=== PATIENT | female | born 1980 | race African-American/Black ===

== ENCOUNTER 2018-06-20 18:19 | Emergency (ER) | payer MEDICARE, MEDICAID ==
[~2018-06-20] VITALS: Ht 149.9 cm; Wt 52.2 kg
[~2018-06-20 18:19] MED LIST: GENTAK5 ML RIGHT EYE; NORCO1 EA ORAL
[2018-06-20 19:45] VITALS: BP 112/73
[2018-06-20] MEDS ORDERED: ROBAXIN-750750 MG PO (20:12)
[2018-06-20] MEDS ORDERED: IBUPROFEN600 MG ORAL (20:12)
[2018-06-20 20:30] VITALS: BP 112/73
--- NOTE | 2018-06-20 20:41 | Emergency Room Report ---
History of Present Illness General Chief Complaint: Headache Source: Patient Present Illness HPI 38-year-old female, no significant past medical history, presenting with right- sided posterior neck pain and spasming for the last 4 days. Patient does not take like taking medication, she was using holistic measures. Not going away. Since that she has been stressed lately. No trauma, no accident. No blurry vision no actual headache. No fever chills. Pain is worse with movement. No vomiting Allergies: Coded Allergies: No Known Allergies (Unverified , 12/15/13) Patient History Past Medical History: see triage record Past Surgical History: none Pertinent Family History: none Last Menstrual Period: 06/19/2018 Reviewed Nursing Documentation: PMH: Agreed; PSxH: Agreed Nursing Documentation-PMH Past Medical History: No Stated History Review of Systems All Other Systems: negative except mentioned in HPI Physical Exam Vital Signs Date Time Temp Pulse Resp B/P (MAP) Pulse Ox O2 Delivery O2 Flow Rate FiO2 06/20/18 18:58 99.1 77 14 112/73 100 Room Air Sp02 EP Interpretation: reviewed, normal General Appearance: alert, GCS 15, mild distress Head: normocephalic, atraumatic Eyes: bilateral eye normal inspection, bilateral eye PERRL, bilateral eye EOMI ENT: normal ENT inspection, normal pharynx, normal voice, moist mucus membranes Neck: other - Tenderness along the right SCM/trapezius, no midline tenderness, otherwise full mobility of neck Respiratory: normal inspection, lungs clear, normal breath sounds, no respiratory distress, no retraction, no wheezing, speaking full sentences, chest symmetrical Cardiovascular #1: normal inspection, regular rate, rhythm, normal capillary refill Cardiovascular #2: 2+ radial (R), 2+ radial (L) Gastrointestinal: normal inspection, non tender, soft, non-distended, no guarding Musculoskeletal: normal inspection, back normal, normal range of motion, non- tender Neurologic: normal inspection, alert, oriented x3, responsive, head batcher III-XII nml as tested, motor strength/tone normal, sensory intact, normal gait, speech normal Psychiatric: normal inspection, judgement/insight normal, memory normal Skin: normal inspection, normal color, no rash, warm/dry, well hydrated, normal turgor Medical Decision Making Diagnostic Impression: Primary Impression: Neck muscle spasm ER Course 38-year-old female with 4 days of right-sided neck pain DDX: Muscular spasm, not concerned with meningitis, no meningismus, no fever no chills. Denies any headache at this time Plan: Reassurance ER course: Patient has remained stable during ED stay. Disposition: Patient is to be discharged to home. Prescriptions given are Motrin and Robaxin Patient is instructed to follow up with their primary care doctor within 5 days. She is instructed not to drive and Robaxin. Please note that this Emergency Department Report was dictated using [employer] technology software, occasionally this can lead to erroneous entry secondary to interpretation by the dictation equipment Last Vital Signs Date Time Temp Pulse Resp B/P (MAP) Pulse Ox O2 Delivery O2 Flow Rate FiO2 06/20/18 18:58 99.1 77 14 112/73 100 Room Air Disposition: HOME, SELF-CARE Condition: Stable Scripts Ibuprofen* (MOTRIN*) 600 Mg Tablet 600 MG ORAL Q8H PRN for For Pain, #30 TAB 0 Refills Prov: Rosibel Montaño M.D. 06/20/18 Methocarbamol* (ROBAXIN-750*) 750 Mg Tablet 750 MG PO QID, #28 TAB 0 Refills Prov: Rosibel Montaño M.D. 06/20/18 Patient Instructions: Cervical Strain and Sprain With [facility] Rosibel Montaño M.D. Jun 20, 2018 20:41
== END 2018-06-20 20:30 | disposition home or self-care (01) ==
LOC: EMR 19:59
DX: M62.838 Other muscle spasm (principal); M54.2 Cervicalgia
CPT/HCPCS: 99283

== ENCOUNTER 2019-05-19 11:44 | Emergency (ER) | payer MEDICAID, MEDICARE ==
[~2019-05-19] VITALS: Ht 160 cm; Wt 59.0 kg
[~2019-05-19 11:44] MED LIST changes: +IBUPROFEN600 MG ORAL; +ROBAXIN-750750 MG PO
[2019-05-19 12:00] VITALS: BP 109/70
[2019-05-19] MEDS ORDERED: NKM (12:12)
--- NOTE | 2019-05-19 13:07 | Emergency Room Report ---
History of Present Illness General Chief Complaint: Eye Problems Source: Patient Present Illness HPI 38 YO Female presents to the ED c/o swelling, itching and erythema of the left upper eye lid x 3 days. Pt. reports initial symptoms due to an insect bite which has progressed. Pt. denies pain, warmth, eye d/c, or increased lacrimation. Pt. denies visual changes or loss of vision. pt. describes a feeling of heaviness. She states itching is the primary symptom. She attempted to use Homeopathic herbs, cold ice compresses and rest/lying down which did not provide relief of her symptom. Pt. denies crusting of the eyelashes, or scratching/fb sensation inside of the eye. Pt. denies contact lens use. Allergies: Coded Allergies: No Known Allergies (Unverified , 12/15/13) Patient History Past Medical History: see triage record Past Surgical History: none Pertinent Family History: none Last Menstrual Period: 04/25 Now: No Reviewed Nursing Documentation: PMH: Agreed; PSxH: Agreed Nursing Documentation-PMH Past Medical History: No Stated History Review of Systems All Other Systems: negative except mentioned in HPI Physical Exam Vital Signs Date Time Temp Pulse Resp B/P (MAP) Pulse Ox O2 Delivery O2 Flow Rate FiO2 05/19/19 12:00 98.6 73 16 109/70 (83) 96 Room Air Sp02 EP Interpretation: reviewed, normal General Appearance: no apparent distress, alert, GCS 15, non-toxic Head: normocephalic, atraumatic Eyes: left eye other - Swelling of the left upper eyelid with some migration in to the left lower lid area, no conjunctival injection or erythema, no crusting, no d/c, EOMI without pain, some redness, no warmth. ; bilateral eye normal inspection, bilateral eye PERRL, bilateral eye EOMI, bilateral eye visual acuity ENT: hearing grossly normal, normal voice Neck: full range of motion Respiratory: lungs clear, normal breath sounds, speaking full sentences Cardiovascular #1: regular rate, rhythm Musculoskeletal: gait/station normal, normal range of motion, non-tender Neurologic: alert, oriented x3, responsive, motor strength/tone normal, sensory intact, speech normal, grossly normal Psychiatric: judgement/insight normal Skin: other - ST swelling/edema to the left upper eyelid, and ST just under the left eyebrow Lymphatic: no adenopathy Medical Decision Making PA Attestation Dr. Jones is my supervising Physician whom patient management has been discussed with. Diagnostic Impression: Primary Impression: Allergic blepharitis Qualified Codes: H01.116 - Allergic dermatitis of left eye, unspecified eyelid Additional Impression: Insect bite Qualified Codes: S00.262A - Insect bite (nonvenomous) of left eyelid and periocular area, initial encounter; W57.XXXA - Bitten or stung by nonvenomous insect and other nonvenomous arthropods, initial encounter ER Course 38 YO Female presents to the ED c/o swelling, itching and erythema of the left upper eye lid x 3 days. Pt. reports initial symptoms due to an insect bite which has progressed. Pt. denies pain, warmth, eye d/c, or increased lacrimation. Pt. denies visual changes or loss of vision. pt. describes a feeling of heaviness. She states itching is the primary symptom. She attempted to use Homeopathic herbs, cold ice compresses and rest/lying down which did not provide relief of her symptom. Pt. denies crusting of the eyelashes, or scratching/fb sensation inside of the eye. Pt. denies contact lens use. Ddx considered but are not limited to: allergic reaction, localized inflammatory response, chemosis, corneal abrasion, acute glaucoma, globe rupture , FB, Corneal Ulcer, conjunctivitis. Iridis, Blepharitis, preseptal or periorbital cellulitis. Vital signs: are WNL, pt. is afebrile H&PE are most consistent with: localized inflammatory/allergic reaction to insect bite of the left upper eyelid. no specific signs of infection at this time. No pain with eye movements, normal VA. ORDERS: none required at this time, the dx is clinical. ED INTERVENTIONS: none at this time, DISCHARGE: At this time pt. is stable for d/c to home. Will provide printed patient care instructions, and any necessary prescriptions. Care plan and follow up instructions have been discussed with the patient prior to discharge. . Last Vital Signs Date Time Temp Pulse Resp B/P (MAP) Pulse Ox O2 Delivery O2 Flow Rate FiO2 05/19/19 12:00 98.6 16 109/70 96 Room Air 05/19/19 12:00 73 Disposition: HOME, SELF-CARE Condition: Stable Scripts Cephalexin* (KEFLEX*) 500 Mg Capsule 500 MG ORAL EVERY 12 HOURS for 7 Days, #14 CAP 0 Refills Prov: Melani Espinosa 05/19/19 Diphenhydramine Hcl (BENADRYL ALLERGY) 25 Mg Tablet 25 MG PO Q6HR, #20 TAB Prov: Melani Espinosa 05/19/19 Erythromycin Base (Erythromycin) 1 Gm Oint...g. 1 APPLIC OP TID, #1 GM Prov: Melani Espinosa 05/19/19 Olopatadine Hcl (PATADAY) 2.5 Ml Drops 1 DRP OP DAILY, #2.5 ML Prov: Melani Espinosa 05/19/19 Patient Instructions: Erythromycin eye ointment Additional Instructions: Take medications as directed. Follow up with a Primary Care Provider in 3-5 days, even if your symptoms have resolved. --Please review list of primary care clinics, if you do not already have a primary care provider Return sooner to ED if new symptoms occur, or current symptoms become worse. - Please note that this Emergency Department Report was dictated using [email or web address] technology software, occasionally this can lead to erroneous entry secondary to interpretation by the dictation equipment. Melani Espinosa May 19, 2019 13:07
[2019-05-19] MEDS ORDERED: CEPHALEXIN500 MG ORAL (13:09)
[2019-05-19] MEDS ORDERED: ERYTHROMYCIN1 G1 OP (13:09)
[2019-05-19] MEDS ORDERED: BENADRYL ALLERG25 M1 PO (13:09)
[2019-05-19] MEDS ORDERED: PATADAY2.5 ML OP (13:09)
[2019-05-19 13:15] VITALS: BP 109/70
--- NOTE | 2019-05-19 13:15 | NUR ---
ER DISCHARGE NOTE: Patient is cleared to be discharged per ERMD, pt is aox4, on room air, with stable vital signs. pt was given dc and prescription instructions, pt was able to verbalize understanding, pt is able to ambulate with steady gait. pt took all belongings.
== END 2019-05-19 13:15 | disposition home or self-care (01) ==
LOC: EMR 12:30
DX: H01.116 Allergic dermatitis of left eye, unspecified eyelid (principal); S00.262A Insect bite (nonvenomous) of left eyelid and periocular area, initial encounter; W57.XXXA Bitten or stung by nonvenomous insect and other nonvenomous arthropods, initial encounter; Y92.9 Unspecified place or not applicable
CPT/HCPCS: 99282

== ENCOUNTER → 2019-12-14 | Emergency (ER) | payer MEDICARE, MEDICAID ==
[~2019-12-14] VITALS: Ht 154.9 cm; Wt 54.4 kg
[~2019-12-14] MED LIST changes: +BENADRYL ALLERG25 M1 PO; +CEPHALEXIN500 MG ORAL; +ERYTHROMYCIN1 G1 OP; +IBUPROFEN600 M1 ORAL; +NKM; +PATADAY2.5 ML OP
[2019-12-14 16:12] VITALS: BP 115/62
--- NOTE | 2019-12-14 16:20 | NUR ---
ED Nurse Note: Patient walked into ED from home c/o right 4th toe pain and swelling for 3 days. patient reports she jammed her right toe on the foot of a bed. patient is alert awake x4 ambulatory, breathing unlabored and even, speaking in full sentences.
--- NOTE | 2019-12-14 16:20 | NUR ---
Note madelineharry in EDM - 12/14/19 at 1625 by EMMIE ED Nurse Note: Patient walked into ED from home c/o right toe pain and swelling for 3 days. patient reports she jammed her right toe on the foot of a bed. patient is alert awake x4 ambulatory, breathing unlabored and even, speaking in full sentences.
--- NOTE | 2019-12-14 16:22 | Emergency Room Report ---
History of Present Illness General Chief Complaint: Lower Extremity Injury Present Illness HPI Disclaimer: Please note that this report is being documented using [employer] technology. This can lead to erroneous entry secondary to incorrect interpretation by the dictating instrument. HPI: 39-year-old female presents for evaluation of toe pain and swelling. She accidentally hit the fourth toe on the right foot against a footstool in her bedroom 3 days ago. Noted pain and swelling. Has been resting, elevating and icing with some improvement however when she bears weight she notes worsening pain and return of swelling. Denies any skin injury. Denies numbness or tingling. She is able to ambulate though it is painful. No other injury reported. No other history of injury in the right lower extremity. Allergies: Coded Allergies: No Known Allergies (Unverified , 12/15/13) COVID-19 Screening Contact w/high risk pt: No Recent Travel to affected area: No Experienced COVID-19 symptoms?: No Patient History Last Menstrual Period: 12/12/19 Now: No Nursing Documentation-[facility] Past Medical History: No Stated History Review of Systems All Other Systems: negative except mentioned in HPI Physical Exam Vital Signs Date Time Temp Pulse Resp B/P (MAP) Pulse Ox O2 Delivery O2 Flow Rate FiO2 12/14/19 16:12 98.4 78 17 115/62 (79) 97 Room Air General: Awake and alert, no acute distress HEENT: NC/AT. EOMI. Resp: Normal work of breathing Skin: Intact. No abrasions, laceration or rash over the exposed skin MSK: Normal tone and bulk. Moving all extremities. No obvious deformity. Tenderness palpation over the PIPJ of the fourth toe on the right foot. No significant edema or erythema. Neuro: Awake and alert. Mentating appropriately Medical Decision Making Diagnostic Impression: Primary Impression: Closed fracture of toe, phalanx ER Course 39-year-old female presents for evaluation of pain in the fourth toe of the right foot after an injury 3 days ago. Concern for fracture and x-ray was ordered. Confirms oblique fracture of the proximal phalanx, mildly displaced. Toe was nancy taped and a hard sole shoe was provided. Patient will continue NSAID therapy, rest, elevation and icing. We will follow-up with PMD and orthopedics as needed. Return precautions discussed. She understands and agrees with this treatment plan. Other X-Ray Diagnostic Results Other X-Ray Diagnostic Results : X-Ray ordered: Right toes # of Views/Limited Vs Complete: Complete Indication: Pain Interpretation: other - Oblique fracture with minimal displacement of the proximal phalanx of the fourth toe. Impression: Other - Acute fracture of the fourth toe proximal phalanx Electronically Signed by: Electronically signed by Dr. Jamaal Jones Last Vital Signs Date Time Temp Pulse Resp B/P (MAP) Pulse Ox O2 Delivery O2 Flow Rate FiO2 12/14/19 16:12 98.4 78 17 115/62 (79) 97 Room Air Disposition: HOME, SELF-CARE Condition: Stable Scripts Ibuprofen* (MOTRIN*) 600 Mg Tablet 600 MG ORAL Q8H PRN for FOR PAIN, #30 TAB 0 Refills Prov: Jamaal Jones MD 12/14/19 Jamaal Jones MD December 14, 2019 16:22
--- NOTE | 2019-12-14 16:31 | NUR ---
ED Nurse Note: xray at bedside.
--- NOTE | 2019-12-14 16:40 | NUR ---
ED Nurse Note: RN explained to the patient that the xray result may take up to 1 hour. xray result typically takes 45-90 minutes.
--- NOTE | 2019-12-14 17:13 | NUR ---
ER DISCHARGE NOTE: Patient is cleared to be discharged per ERMDang Jones, pt is aox4, on room air, with stable vital signs. pt was given dc and prescription instructions, pt was able to verbalize understanding, pt id band removed without complications. pt is able to ambulate with steady gait. pt took all belongings. nancy tape and orthopedic shoe provided to the patient by GUILLERMO Richardson.
--- NOTE | 2019-12-14 17:14 | NUR ---
ED Nurse Note: RN explained about motrin prescription and patient stated she would not take motrin. notified to Dr. Jones.
--- NOTE | 2019-12-14 17:22 | Diagnostic Imaging Report ---
History: INJ Exam: XR RIGHT TOE 3 views fourth and fifth rays Comparison: None available FINDINGS: Essentially nondisplaced acute oblique fracture of the mid to distal fourth proximal phalanx. No dislocation. Developmental osseous fusion fourth middle and distal phalanx fifth ray. IMPRESSION: Essentially nondisplaced acute oblique fracture of the mid to distal fourth proximal phalanx.
--- NOTE | 2019-12-14 17:37 | NUR ---
ED Nurse Note: patient in the fasttrack area, xray result provided/explained by charge nurse Rina. notified to Dr. Jones and Rina Charge nurse regarding patient's wish to get tested for covid-19.
== END | disposition home or self-care (01) ==
LOC: EMR 17:06
DX: S92.511A Displaced fracture of proximal phalanx of right lesser toe(s), initial encounter for closed fracture (principal); W22.09XA Striking against other stationary object, initial encounter; Y92.9 Unspecified place or not applicable
CPT/HCPCS: 99283